=== PATIENT | female | born 1950 | race American Indian/Alaskan Native ===

== ENCOUNTER 2018-10-29 13:46 | Outpatient (CLI) | payer MEDICARE, OTHER ==
--- NOTE | 2018-10-29 22:55 | Magnetic Resonance Report ---
FINAL REPORT PROCEDURE: MR CERVICAL SPINE WO CON TECHNIQUE: Magnetic resonance imaging of the cervical spine was performed using standard pulse seque nces without contrast material. HISTORY: CERVICAL RADICULOPATHYoutpatient COMPARISON: No prior studies are available for comparison. FINDINGS: There is loss of cervical lordosis. Vertebral height is normal. Endplate degenerative changes are not ed at C5-6 and C6-7 levels. Cervical spinal cord demonstrates normal size and signal characteristics. C1-2: No significant abnormality. C2-3: No significant abnormality . C3-4: No significant abnormality . C4-5: A moderate degree central disc osteophyte complex is noted causing mild degree deformity of the ventral cord.. C5-6: Moderate degree broad-based disc osteophyte complex is noted eccentric to the right causing mod erate degree deformity of the right hemicord. There is also mild degree right neural foraminal stenos is secondary to uncovertebral degenerative changes.. C6-7: Mild degree broad-based disc osteophyte complex is noted without significant spinal canal compr omise. Moderate degree bilateral neural foraminal stenosis is noted secondary to uncovertebral degene rative changes.. C7-T1: No significant abnormality . Other: None . IMPRESSION: Multilevel cervical spondylosis as described above most marked at C5-6.
== END 2018-10-29 13:47 | disposition home or self-care (01) ==
LOC: MRI 13:46
PROVIDERS: ATTEND Physician Assistant Medical
DX: M47.812 Spondylosis without myelopathy or radiculopathy, cervical region (principal); M48.02 Spinal stenosis, cervical region; R20.2 Paresthesia of skin; M25.78 Osteophyte, vertebrae
CPT/HCPCS: 72141